=== PATIENT | male | born 1980 | race African-American/Black ===

== ENCOUNTER 2020-10-13 10:48 | Emergency (ER) | payer MEDICAID ==
[~2020-10-13] VITALS: Ht 190.5 cm; Wt 106.8 kg
[2020-10-13 10:58] VITALS: BP 113/76; Ht 190.5 cm; Wt 106.8 kg
[2020-10-13] MEDS ORDERED: METHOCARBAMOL500 MG PO (12:22)
[2020-10-13] MEDS ORDERED: TORADOL10 MG PO (12:22)
== END 2020-10-13 12:56 | disposition home or self-care (01) ==
LOC: D.ER 10:48
DX: S16.1XXA Strain of muscle, fascia and tendon at neck level, initial encounter (principal); S00.93XA Contusion of unspecified part of head, initial encounter; S29.012A Strain of muscle and tendon of back wall of thorax, initial encounter; V89.2XXA Person injured in unspecified motor-vehicle accident, traffic, initial encounter; Y93.9 Activity, unspecified; Y92.9 Unspecified place or not applicable